=== PATIENT | male | born 1975 | race African-American/Black ===

== ENCOUNTER 2016-07-28 23:03 | Emergency (ER) | payer SELFPAY ==
[~2016-07-28 23:03] MED LIST: Sodium Chloride 0.9% 1,000 ML BAG ONE; Sodium Chloride 0.9% 100 ML BAG ONE
[2016-07-28] MEDS ORDERED: Donnatal Elixir 16.2 MG/5 ML UDCUP ONE (23:53)
[2016-07-28] MEDS ORDERED: Lidocaine Viscous Sol 2% 15 ml UD Cup ONE (23:53)
[2016-07-28] MEDS ORDERED: Mag-Al Plus 1200 MG/1200 MG/120 MG/30 ML UDCUP ONE (23:53)
[2016-07-28 23:54] LABS: #Eosinphils 0.2 thou/uL (0.0-0.7); #Lymphocytes 2.1 thou/uL (1.20-3.40); #Monocytes 0.4 thou/uL (0.11-0.59); #Neutrophils 3.1 thou/uL (1.40-6.50); %Basophils 0.7 % (0.0-1.0); %Eosinophils 4.2 % (0.0-10.0); %Lymphocytes 35.2 % (21.0-51.0); %Monocytes 7.5 % (0.0-10.0); %Neutrophils 52.4 % (42.0-75.0); Hemoglobin 12.8 g/dL (14.0-18.0); Mean Corpuscular HGB CONC 32.9 g/dL (32.0-36.0); Mean Corpuscular Volume 84.9 fl (80.0-94.0); Mean Platelet Volume 6.9 fL (7.4-10.4); Platelet Count 241 thou/uL (130-400); RBC Distribution Width 11.8 % (11.5-14.5); Red Blood Cell (RBC) Count 4.56 mill/uL (4.70-6.10); White Blood Cell (WBC) Count 5.8 thou/uL (4.8-10.8)
[2016-07-28] MEDS ORDERED: Cephalexin 500 MG CAP ONE (23:55)
[2016-07-28] MEDS ORDERED: Simethicone Chewable 80 MG TAB ONE (23:55)
[2016-07-28] MEDS ORDERED: Ciprofloxacin 500 MG TAB ONE (23:55)
--- NOTE | 2016-07-28 23:56 | RAD ---
PA AND LATERAL CHEST: 07/28/16 COMPARISON: 02/04/16 study. HISTORY: Positive TB skin test. Heart size and mediastinum are within normal limits. The lungs are clear of infiltrates. No bony fin dings. No evidence of active TB. IMPRESSION: No active intrathoracic disease. POS: [facility]
[2016-07-29 00:11] LABS: ALT (SGPT) 13 U/L (8-55); AST (SGOT) 15 U/L (5-34); Albumin 4.1 g/dL (3.5-5.0); Alkaline Phosphatase 58 U/L (40-150); Anion Gap 15 mmol/L (10-20); BUN (Urea Nitrogen) 19 mg/dL (8.9-20.6); Bilirubin, Total 0.3 mg/dL (0.2-1.2); Calc. Creatinine Clearance 0 mL/min (70-130); Calcium 9.5 mg/dL (7.8-10.44); Carbon Dioxide 27 mmol/L (22-29); Chloride 98 mmol/L (98-107); Estimated GFR-MDRD 68; Globulin 2.7 g/dL (2.4-3.5); Glucose 483 mg/dL (70-105); Potassium 4.2 mmol/L (3.5-5.1); Protein, Total 6.8 g/dL (6.0-8.3); Sodium 136 mmol/L (136-145)
[2016-07-29 00:11] LABS: Clarity Clear (Clear)
[2016-07-29 00:13] LABS: Glucose, Urine (Dipstick) >=1000 mg/dL (Negative); Leukocyte Negative (Negative); Nitrite Negative (Negative); Protein, Urine (Dipstick) Negative (Neg-Trace); Specific Gravity, Urine 1.032 (1.002-1.036); Urobilinogen 0.2 mg/dL (0.2-1.0); pH, Urine 5.5 (5.0-9.0)
[2016-07-29 00:14] LABS: Bilirubin Negative (Negative); Blood, Urine Trace (Negative)
[2016-07-29 00:16] LABS: Bacteria/HPF Rare-Few HPF (None Seen); Squamous Epithelial 0-3 HPF (0-3); WBC/HPF 0-3 HPF (0-3)
[2016-07-29 00:17] LABS: Sperm/HPF 1+ HPF (None Seen)
[2016-07-29] MEDS ORDERED: Insulin Regular 300 UNITS/3 ML VIAL ONE (00:42)
[2016-07-29 01:57] LABS: Hemoglobin A1c 12.7 % (4.0-6.0)
[2016-07-29] MEDS ORDERED: Triple Antibiotic Oint 1 GM Packet ONE (02:01)
== END 2016-07-29 02:20 | disposition home or self-care (01) ==
LOC: MADERS 23:03
DX: K21.0 Gastro-esophageal reflux disease with esophagitis (principal); E11.621 Type 2 diabetes mellitus with foot ulcer; L97.519 Non-pressure chronic ulcer of other part of right foot with unspecified severity; I10 Essential (primary) hypertension; B35.0 Tinea barbae and tinea capitis; R76.11 Nonspecific reaction to tuberculin skin test without active tuberculosis; Z79.899 Other long term (current) drug therapy
CPT/HCPCS: 36415; 36416; 71020; 80053; 81001; 82150; 83036; 83690; 83880; 85025; 87070; 87077; 87086; 87186; 87205; 96361; 96365; 96376; J1815; J7050

== ENCOUNTER 2016-09-26 23:36 | Emergency (ER) | payer SELFPAY ==
[2016-09-27] MEDS ORDERED: Bacitracin Zinc 1 Packet ONE (00:38)
[2016-09-27] MEDS ORDERED: Cephalexin 500 MG CAP ONE (00:38)
[2016-09-27] MEDS ORDERED: Ciprofloxacin 500 MG TAB ONE (00:38)
== END 2016-09-27 01:33 | disposition home or self-care (01) ==
LOC: MADERS 23:36
DX: G89.18 Other acute postprocedural pain (principal); E11.621 Type 2 diabetes mellitus with foot ulcer; L97.519 Non-pressure chronic ulcer of other part of right foot with unspecified severity; I10 Essential (primary) hypertension; Z79.4 Long term (current) use of insulin; Z79.84 Long term (current) use of oral hypoglycemic drugs; Z79.899 Other long term (current) drug therapy
CPT/HCPCS: 99283

== ENCOUNTER 2016-11-15 23:05 | Emergency (ER) | payer MEDICAID, OTHER, SELFPAY ==
[~2016-11-15 23:05] MED LIST changes: -Sodium Chloride 0.9% 1,000 ML BAG ONE
[2016-11-16 00:37] LABS: ALT (SGPT) 11 U/L (8-55); AST (SGOT) 12 U/L (5-34); Albumin 3.4 g/dL (3.5-5.0); Alkaline Phosphatase 109 U/L (40-150); Anion Gap 14 mmol/L (10-20); BUN (Urea Nitrogen) 13 mg/dL (8.9-20.6); Bilirubin, Total 0.3 mg/dL (0.2-1.2); Calc. Creatinine Clearance 0 mL/min (70-130); Calcium 9.4 mg/dL (7.8-10.44); Carbon Dioxide 26 mmol/L (22-29); Chloride 99 mmol/L (98-107); Estimated GFR-MDRD Greater than 90; Glucose 396 mg/dL (70-105); Protein, Total 8.4 g/dL (6.0-8.3); Sodium 135 mmol/L (136-145)
[2016-11-16 00:38] LABS: Hemoglobin A1c 12.6 % (4.0-6.0)
[2016-11-16 01:24] LABS: #Basophils 0.1 thou/uL (0.0-0.2); #Eosinphils 0.2 thou/uL (0.0-0.7); #Lymphocytes 1.9 thou/uL (1.20-3.40); #Monocytes 0.3 thou/uL (0.11-0.59); #Neutrophils 4.8 thou/uL (1.40-6.50); %Basophils 0.8 % (0.0-1.0); %Eosinophils 2.9 % (0.0-10.0); %Monocytes 3.9 % (0.0-10.0); %Neutrophils 66.3 % (42.0-75.0); Hemoglobin 10.5 g/dL (14.0-18.0); Mean Corpuscular HGB CONC 33.1 g/dL (32.0-36.0); Mean Corpuscular Hemoglobin 27.5 pg (27.0-31.0); Mean Corpuscular Volume 82.9 fl (80.0-94.0); Mean Platelet Volume 5.6 fL (7.4-10.4); Platelet Count 387 thou/uL (130-400); RBC Distribution Width 11.8 % (11.5-14.5); Red Blood Cell (RBC) Count 3.82 mill/uL (4.70-6.10); White Blood Cell (WBC) Count 7.2 thou/uL (4.8-10.8)
[2016-11-16] MEDS ORDERED: Ondansetron HCl/PF 4 MG/2 ML Vial ONE (02:16)
[2016-11-16] MEDS ORDERED: Ketorolac Tromethamine 30 MG/ML VIAL ONE (02:16)
[2016-11-16] MEDS ORDERED: cefTRIAXone\\ROCEPHIN 2 GM VIAL ONE (02:17)
[2016-11-16] MEDS ORDERED: Piperacillin/Tazobactam 4.5 GM VIAL ONE (02:32)
[2016-11-16] MEDS ORDERED: Acetaminophen 500 MG TAB ONE (02:36)
--- NOTE | 2016-11-16 08:27 | RAD ---
SINGLE VIEW OF CHEST: Date: 11/16/16 COMPARISON: 06/07/16. HISTORY: Fever and sepsis. FINDINGS/IMPRESSION: Single view of the chest shows a normal sized cardiomediastinal silhouette. There is no evidence of consolidation, mass, or pleural effusion. The bones are unremarkable. IMPRESSION: No evidence of acute cardiopulmonary disease. POS: [facility]
--- NOTE | 2016-11-16 08:52 | RAD ---
3 VIEWS RIGHT FOOT: Date: 11/16/16 COMPARISON: None. HISTORY: Foot wound. Evaluate for osteomyelitis. FINDINGS: Three views of the right foot show severe soft tissue swelling overlying the metatarsophalangeal ailyn nt of the great toe. There is bony destruction of the distal aspect of the metatarsal and of the pro ximal aspect of the proximal phalanx. There is fragmentation of bone. These findings are evidence fo r osteomyelitis. IMPRESSION: Erosive changes surrounding the metatarsophalangeal joint in the great toe are evidence for osteomye litis. POS: [facility]
== END 2016-11-16 02:44 | disposition short-term general hospital (02) ==
LOC: MADERS 23:05
DX: E11.65 Type 2 diabetes mellitus with hyperglycemia (principal); E11.621 Type 2 diabetes mellitus with foot ulcer; I10 Essential (primary) hypertension; D64.9 Anemia, unspecified; L97.419 Non-pressure chronic ulcer of right heel and midfoot with unspecified severity; F17.210 Nicotine dependence, cigarettes, uncomplicated
CPT/HCPCS: 36415; 71010; 80053; 83036; 85025; 87040; 87070; 87077; 87205; 96374; 96375; J0696; J1885; J2270; J2405; J2543; J3370; J7050

== ENCOUNTER 2016-11-22 03:23 | Emergency (ER) | payer MEDICAID, SELFPAY ==
[2016-11-22 04:24] LABS: #Basophils 0.1 thou/uL (0.0-0.2); #Eosinphils 0.1 thou/uL (0.0-0.7); #Monocytes 0.5 thou/uL (0.11-0.59); #Neutrophils 10.7 thou/uL (1.40-6.50); %Basophils 0.6 % (0.0-1.0); %Eosinophils 1.2 % (0.0-10.0); %Lymphocytes 7.9 % (21.0-51.0); %Monocytes 3.9 % (0.0-10.0); %Neutrophils 86.4 % (42.0-75.0); Hemoglobin 8.8 g/dL (14.0-18.0); Mean Corpuscular HGB CONC 33.5 g/dL (32.0-36.0); Mean Corpuscular Hemoglobin 27.9 pg (27.0-31.0); Mean Corpuscular Volume 83.2 fl (80.0-94.0); Mean Platelet Volume 5.7 fL (7.4-10.4); Platelet Count 358 thou/uL (130-400); RBC Distribution Width 12.4 % (11.5-14.5); Red Blood Cell (RBC) Count 3.15 mill/uL (4.70-6.10); White Blood Cell (WBC) Count 12.4 thou/uL (4.8-10.8)
[2016-11-22] MEDS ORDERED: Benzonatate 100 MG CAP ONE (04:34)
[2016-11-22] MEDS ORDERED: Acetaminophen 500 MG TAB ONE (04:34)
[2016-11-22 04:43] LABS: ALT (SGPT) 27 U/L (8-55); AST (SGOT) 31 U/L (5-34); Albumin 3.2 g/dL (3.5-5.0); Alkaline Phosphatase 182 U/L (40-150); Anion Gap 11 mmol/L (10-20); BUN (Urea Nitrogen) 20 mg/dL (8.9-20.6); Bilirubin, Total 0.4 mg/dL (0.2-1.2); Calc. Creatinine Clearance 0 mL/min (70-130); Calcium 8.9 mg/dL (7.8-10.44); Carbon Dioxide 25 mmol/L (22-29); Chloride 103 mmol/L (98-107); Estimated GFR-MDRD 56; Globulin 4.5 g/dL (2.4-3.5); Glucose 349 mg/dL (70-105); Potassium 4.7 mmol/L (3.5-5.1); Protein, Total 7.7 g/dL (6.0-8.3); Sodium 134 mmol/L (136-145)
[2016-11-22 04:44] LABS: CKMB 1.8 ng/mL (0-6.6); Troponin I 0.072 ng/mL (< 0.028)
[2016-11-22] MEDS ORDERED: Piperacillin/Tazobactam 4.5 GM VIAL ONE (04:59)
[2016-11-22] MEDS ORDERED: Oseltamivir 75 MG CAP ONE (04:59)
[2016-11-22 07:22] LABS: pH (venous) 7.46 (7.35-7.45)
[2016-11-22 07:23] LABS: Base Excess -1.9 mEq/L (-2 - +2)
[2016-11-22 07:24] LABS: Hemoglobin (Hb) 9.5 g/dL (13.2-17.3)
[2016-11-22] MEDS ORDERED: Sodium Chloride 0.9% 1,000 ML BAG ONE (07:29)
--- NOTE | 2016-11-22 08:44 | CT ---
PRELIMINARY REPORT/[facility]/EMERGENCY AFTER HOURS PROCEDURE: EXAM: CT Angiography Chest With Intravenous Contrast CLINICAL HISTORY: 41 years old, male; Signs and symptoms; Dyspnea; Patient HX: Had toe amputed within the last week du e to complications with diabetes TECHNIQUE: Axial computed tomographic angiography images of the chest with intravenous contrast using pulmonary embolism protocol. Coronal reformatted images were created and reviewed. CONTRAST: 120 mL of ISOVUE 370 administered intravenously. COMPARISON: No relevant prior studies available. FINDINGS: Pulmonary arteries: The examination is limited by patient motion and poor opacification of the pulmo nary arteries. Aorta: No acute findings. No thoracic aortic aneurysm. Lungs: Peribronchial vascular/perihilar opacities/consolidation is present. Pleural space: Trace right pleural effusion and moderate left pleural effusion. No pneumothorax. Heart: No cardiomegaly. No significant pericardial effusion. No evidence of RV dysfunction. Bones/joints: No acute fracture. No dislocation. Soft tissues: Bilateral gynecomastia. Lymph nodes: No enlarged lymph nodes. Intraperitoneal space: Partial visualization of perihepatic ascites. IMPRESSION: 1. Extremely limited exam for evaluation of pulmonary embolism secondary to patient motion and poor opacification of the pulmonary arteries. 2. Peribronchial vascular/perihilar opacities/consolidation is likely secondary to pulmonary edema, however infection cannot be entirely excluded. 3. Moderate left pleural effusion, trace right pleural effusion and partially visualized perihepatic ascites. Thank you for allowing us to participate in the care of your patient. Dictated and Authenticated by: Marybel Gordon MD 11/22/2016 4:59 AM Central Time ([place] \T\ [place]) FINAL REPORT CTA CHEST WITH CONTRAST: History Dyspnea. Recent amputation. COMPARISON: Chest 1 view 11/16/16. TECHNIQUE: CT angiogram of chest performed after the intravenous administration of contrast. Three-D rendering provided. FINDINGS: Evaluation for embolism is extremely limited due to motion and phase of contrast. Heart size is enl arged. No pericardial effusion. No large proximal segmental pulmonary arterial filling defect. There are extensive upper lobe dense airspace opacities as well as lower lobe airspace opacities. T hese have somewhat of a hilar and central predominance. These findings are new from the comparison chest radiograph. Soft tissues are mildly edematous. Upper abdomen is unremarkable. Small effusions. There is low-g rade free fluid in the abdomen. Compression fracture. No displaced rib fracture. IMPRESSION: 1. Within the limits of this examination, no segmental pulmonary arterial filling defect. 2. New predominantly hilar central lobular opacities with somewhat of an upper lobe predominance. Findings can be seen in multifocal pneumonia, fat emboli syndrome due to recent amputation, and cecilia a. Followup recommended. POS: [facility]
[2016-11-22] MEDS ORDERED: Sodium Chloride 0.9% 100 ML BAG ONE (09:23)
[2016-11-22] MEDS ORDERED: Iopamidol 370 76% 125 ML VIAL FS ONE (10:02)
== END 2016-11-22 05:06 | disposition short-term general hospital (02) ==
LOC: MADERS 03:23
DX: J18.9 Pneumonia, unspecified organism (principal); R09.02 Hypoxemia; E11.9 Type 2 diabetes mellitus without complications; F17.210 Nicotine dependence, cigarettes, uncomplicated; F32.9 Major depressive disorder, single episode, unspecified; F20.9 Schizophrenia, unspecified; I10 Essential (primary) hypertension; Z79.4 Long term (current) use of insulin
CPT/HCPCS: 71275; 80053; 82553; 82805; 83735; 83880; 84484; 85025; 87040; 93005; 94760; 96374; 96375; J2270; J2543; J7050

== ENCOUNTER 2016-11-29 15:11 | Emergency (ER) | payer SELFPAY | END 2016-11-29 16:45 | disposition home or self-care (01) | LOC: MADERS 15:11 | DX: M96.830 Postprocedural hemorrhage of a musculoskeletal structure following a musculoskeletal system procedure (principal); E11.9 Type 2 diabetes mellitus without complications; I10 Essential (primary) hypertension; F32.9 Major depressive disorder, single episode, unspecified; F17.210 Nicotine dependence, cigarettes, uncomplicated; Z79.84 Long term (current) use of oral hypoglycemic drugs | CPT/HCPCS: 99283 ==

== ENCOUNTER 2016-11-30 12:09 | Emergency (ER) | payer SELFPAY ==
[~2016-11-30 12:09] MED LIST changes: -Sodium Chloride 0.9% 100 ML BAG ONE; +Sodium Chloride Irrig Solution 250 ML BOT ONE
[2016-11-30 13:15] LABS: #Eosinphils 0.2 thou/uL (0.0-0.7); #Lymphocytes 1.5 thou/uL (1.20-3.40); #Monocytes 0.4 thou/uL (0.11-0.59); #Neutrophils 3.1 thou/uL (1.40-6.50); %Basophils 0.7 % (0.0-1.0); %Eosinophils 4.3 % (0.0-10.0); %Lymphocytes 29.2 % (21.0-51.0); %Monocytes 7.4 % (0.0-10.0); %Neutrophils 58.4 % (42.0-75.0); Hemoglobin 8.9 g/dL (14.0-18.0); Mean Corpuscular Hemoglobin 27.2 pg (27.0-31.0); Mean Corpuscular Volume 84.9 fl (80.0-94.0); Mean Platelet Volume 5.6 fL (7.4-10.4); Platelet Count 387 thou/uL (130-400); RBC Distribution Width 13.4 % (11.5-14.5); Red Blood Cell (RBC) Count 3.29 mill/uL (4.70-6.10); White Blood Cell (WBC) Count 5.3 thou/uL (4.8-10.8)
[2016-11-30 13:31] LABS: Anion Gap 13 mmol/L (10-20); BUN (Urea Nitrogen) 19 mg/dL (8.9-20.6); Calc. Creatinine Clearance 0 mL/min (70-130); Calcium 9.3 mg/dL (7.8-10.44); Carbon Dioxide 29 mmol/L (22-29); Chloride 102 mmol/L (98-107); Estimated GFR-MDRD Greater than 90; Glucose 206 mg/dL (70-105); Potassium 4.2 mmol/L (3.5-5.1); Sodium 140 mmol/L (136-145)
== END 2016-11-30 14:05 | disposition home or self-care (01) ==
LOC: MADERS 12:09
DX: Z48.817 Encounter for surgical aftercare following surgery on the skin and subcutaneous tissue (principal); I10 Essential (primary) hypertension; E11.621 Type 2 diabetes mellitus with foot ulcer; L97.529 Non-pressure chronic ulcer of other part of left foot with unspecified severity; L97.519 Non-pressure chronic ulcer of other part of right foot with unspecified severity; F17.210 Nicotine dependence, cigarettes, uncomplicated; F32.9 Major depressive disorder, single episode, unspecified; F20.9 Schizophrenia, unspecified; Z79.4 Long term (current) use of insulin
CPT/HCPCS: 36415; 80048; 85025; 99283

== ENCOUNTER 2016-12-01 13:42 | Emergency (ER) | payer SELFPAY | END 2016-12-01 19:12 | disposition home or self-care (01) | LOC: MADERS 13:42 | DX: Z48.817 Encounter for surgical aftercare following surgery on the skin and subcutaneous tissue (principal); E11.9 Type 2 diabetes mellitus without complications; Z79.4 Long term (current) use of insulin; I10 Essential (primary) hypertension; F32.9 Major depressive disorder, single episode, unspecified; F20.9 Schizophrenia, unspecified; F17.210 Nicotine dependence, cigarettes, uncomplicated; Z79.899 Other long term (current) drug therapy | CPT/HCPCS: 99282 ==

== ENCOUNTER 2017-01-01 10:18 | Emergency (ER) | payer SELFPAY ==
[2017-01-01] MEDS ORDERED: Benzonatate 100 MG CAP ONE (10:45)
[2017-01-01] MEDS ORDERED: AMOXicillin 250 MG CAP ONE (10:45)
== END 2017-01-01 10:55 | disposition home or self-care (01) ==
LOC: MADERS 10:18
DX: J20.9 Acute bronchitis, unspecified (principal); E10.9 Type 1 diabetes mellitus without complications; I10 Essential (primary) hypertension; F32.9 Major depressive disorder, single episode, unspecified; F20.9 Schizophrenia, unspecified; F17.210 Nicotine dependence, cigarettes, uncomplicated; Z79.899 Other long term (current) drug therapy
CPT/HCPCS: 99283

== ENCOUNTER 2017-03-21 11:34 | Emergency (ER) | payer SELFPAY | END 2017-03-21 12:20 | disposition home or self-care (01) | LOC: MADERS 11:34 | DX: T87.89 Other complications of amputation stump (principal); E11.40 Type 2 diabetes mellitus with diabetic neuropathy, unspecified; I10 Essential (primary) hypertension; F17.210 Nicotine dependence, cigarettes, uncomplicated; F32.9 Major depressive disorder, single episode, unspecified; F20.9 Schizophrenia, unspecified; Z79.899 Other long term (current) drug therapy; Z79.4 Long term (current) use of insulin | CPT/HCPCS: 99283 ==

== ENCOUNTER 2025-01-29 07:22 | Emergency (ER) | payer MEDICAID, OTHER ==
[2025-01-29 08:34] LABS: ALT (SGPT) 16 U/L (Less than 45); AST (SGOT) 18 U/L (11-34); Albumin 3.5 g/dL (3.1-4.5); Alkaline Phosphatase 60 U/L (40-110); Anion Gap 19 mmol/L (10-20); BUN (Urea Nitrogen) 80 mg/dL (8.9-20.6); Bilirubin, Total 0.2 mg/dL (0.3-1.2); Calc. Creatinine Clearance 0 mL/min (70-130); Calcium 8.4 mg/dL (7.8-10.44); Carbon Dioxide 20 mmol/L (22-29); Chloride 107 mmol/L (98-107); Globulin 3.6 g/dL (2.4-3.5); Glucose 153 mg/dL (70-105); Magnesium 2.8 mg/dL (1.6-2.6); Potassium 6.0 mmol/L (3.5-5.1); Sodium 140 mmol/L (136-145)
[2025-01-29 08:35] LABS: Bicarbonate (HCO3v) 24.5 mmol/L (22.0-28.0); CO2 Tension (PvCO2) 48.7 mmHg (42.0-51.0); Calcium, Ionized 1.13 mmol/L (1.15-1.33); Chloride 109 mmol/L (98-107); Hemoglobin - Calc 10.1 g/dL (14.0-18.0); Potassium 5.7 mmol/L (3.5-5.1); Sodium 138 mmol/L (138-145); T. Carbon Dioxide 26.0 mmol/L (22.0-28.0); Troponin I Less than 0.010 ng/mL (< 0.028); vO2 Saturation-calc 98.9 % (60.0-85.0)
[2025-01-29 08:43] LABS: Hematocrit 31.8 % (42.0-52.0); Hemoglobin 10.1 g/dL (14.0-18.0); Mean Corpuscular Hemoglobin 27.6 pg (27.0-31.0); Mean Corpuscular Volume 87.3 fl (78.0-98.0); Platelet Count 145 10x3/uL (130-400); Red Blood Cell (RBC) Count 3.65 mill/uL (4.70-6.10); White Blood Cell (WBC) Count 7.3 10x3/uL (4.8-10.8)
[2025-01-29] MEDS ORDERED: Sodium Bicarb 50 MEQ/50 ML Abboject 8.4% SYRINGE ONE (09:07)
[2025-01-29] MEDS ORDERED: Dextrose 50% Abboject 50 ML SYRINGE ONE (09:07)
[2025-01-29] MEDS ORDERED: LOKELMA 10 GM PACKET ONE (09:07)
[2025-01-29] MEDS ORDERED: Albuterol 2.5 MG (3 mL) NEB ONE (09:07)
[2025-01-29] MEDS ORDERED: Albuterol 2.5 MG (0.5 mL) NEB ONE (09:07)
[2025-01-29 09:08] LABS: MDiff Complete? YES; Manual Diff?? YES
[2025-01-29] MEDS ORDERED: Calcium Gluc 4.6 MEQ/10 ML (100 MG/ML) ONE (09:08)
[2025-01-29 09:09] LABS: Anisocytosis SLIGHT = 6-15 cells (100X) (0-5/hpf)
[2025-01-29 09:10] LABS: Platelet Adequacy Comment Appears Adequate
[2025-01-29 09:28] LABS: Acetaminophen Less than 10 mcg/mL (Less than 10); Salicylate Less than 8.0 mg/dL (Less than 8.0)
[2025-01-29 10:06] LABS: Glucose, Urine (Dipstick) Negative (Negative); Leukocyte Negative (Negative); Protein, Urine (Dipstick) Negative (Neg-Trace); Specific Gravity, Urine 1.015 (1.005-1.030)
[2025-01-29 10:11] LABS: CAUTI Indications for Culture Alt mental st,lethar; RBC/HPF 0-3 HPF (0-3); WBC/HPF 0-3 HPF (0-3)
[2025-01-29 10:12] LABS: Bacteria/HPF None Seen HPF (None Seen); Urine Culture Reflex No No
[2025-01-29 10:13] LABS: Cocaine Metabolite Screen Negative (Negative); THC/Cannabinoid Screen Negative (Negative); Tricyclic Screen Negative (Negative)
[2025-01-29 10:27] LABS: Bicarbonate (HCO3v) 25.0 mmol/L (22.0-28.0); CO2 Tension (PvCO2) 46.6 mmHg (42.0-51.0); Calcium, Ionized 1.08 mmol/L (1.15-1.33); Chloride 110 mmol/L (98-107); Hemoglobin - Calc 10.1 g/dL (14.0-18.0); Potassium 5.3 mmol/L (3.5-5.1); Sodium 140 mmol/L (138-145); T. Carbon Dioxide 26.5 mmol/L (22.0-28.0); vO2 Saturation-calc 99.5 % (60.0-85.0)
== END 2025-01-29 12:04 | disposition short-term general hospital (02) ==
LOC: MADERS 07:22
DX: G93.40 Encephalopathy, unspecified (principal); N17.9 Acute kidney failure, unspecified; R09.02 Hypoxemia; E87.5 Hyperkalemia; E11.22 Type 2 diabetes mellitus with diabetic chronic kidney disease; N18.9 Chronic kidney disease, unspecified; I50.9 Heart failure, unspecified; I13.0 Hypertensive heart and chronic kidney disease with heart failure and stage 1 through stage 4 chronic kidney disease, or unspecified chronic kidney disease; Z79.4 Long term (current) use of insulin; Z87.891 Personal history of nicotine dependence; Z79.82 Long term (current) use of aspirin; Z79.899 Other long term (current) drug therapy
CPT/HCPCS: 36416; 51701; 70450; 71045; 80053; 80306; 80307; 81001; 82330; 82435; 82803; 83605; 83735; 83880; 84132; 84295; 84443; 84484; 85014; 85025; 87040; 93005; 94760; 96361; 96365; 96375; J0612; J1815; J7030; J7611; J7999